=== PATIENT | female | born 1940 | race Caucasian/White ===

== ENCOUNTER 2016-05-20 05:33 | Day surgery (SDC) | payer MEDICARE, OTHER ==
[2016-05-18 13:47] LABS: HEMATOCRIT 38.1 % (36.0-48.0); HEMOGLOBIN 12.8 g/dL (12.0-16.0)
[2016-05-18 14:01] LABS: BUN (BLOOD UREA NITROGEN) 30 MG/DL (6-23); CALCIUM, SERUM 9.3 MG/DL (8.5-10.4); CHLORIDE, SERUM 103 MMOL/L (96-112); CO2 (CARBON DIOXIDE) 28 MMOL/L (24-34); CREATININE 0.82 MG/DL (0.55-1.02); GFR AFRICAN AMERICAN 81 ML/MIN (>=60); GFR NON AFRICAN AMERICAN 70 ML/MIN (>=60); GLUCOSE, SERUM 102 MG/DL (60-99); POTASSIUM, SERUM 4.2 MMOL/L (3.5-5.3); SODIUM, SERUM 140 MMOL/L (135-148)
--- NOTE | ~2016-05-20 | OP ---
Record Of Operation [facility] [address] [place]. [address] NAME: MADDISON CANAS : 38 STATUS : [facility]#: [id number] AGE: 75 ADM/REG DATE : 05/20/16 MR#: [id number] REPORT SERV DATE: 05/21/16 DICTATED BY: AMOL MENEZES DATE: 05/21/16 REPORT STATUS : Draft TRANSCRIBED BY: MODJoana DATE: 05/21/16 DATE OF PROCEDURE: 05/20/2016 ANESTHESIA: General. COMPLICATIONS: None. ESTIMATED BLOOD LOSS: 75 mL. PREOPERATIVE DIAGNOSES: 1. Cystocele, rectocele. 2. Stress urinary incontinence. 3. Vaginal vault prolapse. POSTOPERATIVE DIAGNOSES: 1. Cystocele, rectocele. 2. Stress urinary incontinence. 3. Vaginal vault prolapse. OPERATION: 1. Attempted laparoscopic colpopexy with subsequent anterior and posterior repair. 2. Enterocele repair. 3. Sacrospinous ligament vaginal vault suspension. 4. Advantage Fit suburethral sling. 5. Cystoscopy. PROCEDURE IN DETAIL: The patient was taken to the operating room and placed on the operating table in [facility]. After adequate anesthesia, the patient was prepped and draped in the usual sterile fashion. A 5 mm subumbilical incision was performed. A Veress needle was inserted and abdomen insufflated with CO2 gas. A 5 mm trocar was inserted. After confirming the intraabdominal position, there were just multiple adhesions noted with no clear pathway to see any where in the abdomen or pelvis. At this point, a decision was made to complete the procedure vaginally. The anterior vaginal wall was sharply and bluntly dissected off the underlying anterior fibromuscular tissue. The anterior fibromuscular tissue was plicated with 0 PDS and 0 Vicryl suture. The bladder wall was paper-thin in one area. A small less than half centimeter mary grace in the bladder was noted. This was repaired with a 4-0 chromic and an imbricating 3-0 Vicryl suture. Again, the anterior fibromuscular tissue was plicated with 0 PDS and 0 Vicryl suture. Using an Advantage Fit sling, needles were inserted upward through the retropubic space and the mesh placed just distal to the urethrovesical junction without any tension. The anterior compartment was thoroughly irrigated. Hemostasis noted to be good. Excess anterior vaginal wall excised and reapproximated with running 2-0 Vicryl suture. Next, the posterior vaginal wall was sharply and bluntly dissected off the underlying posterior fibromuscular tissue. The enterocele was plicated with 0 PDS suture. Two separate #1 Prolene sutures were placed to the sacrospinous ligament 2 to 3 cm medial to the ischial spine. One end of each of these were affixed to the vaginal apex in a whit stitch fashion and held. Posterior fibromuscular tissue was Record Of Operation [facility] [address] [place]. [address] NAME: MADDISON CANAS : 38 STATUS : [facility] PAT#: [id number] AGE: 75 ADM/REG DATE : 05/20/16 MR#: [id number] REPORT SERV DATE: 05/21/16 DICTATED BY: AMOL MENEZES DATE: 05/21/16 REPORT STATUS : Draft TRANSCRIBED BY: CHLOE DATE: 05/21/16 plicated with 0 PDS and 0 Vicryl suture. At this point, the Prolene sutures in the sacrospinous ligament were tied, elevating the vaginal apex high in the pelvis. The posterior compartment was sterilely irrigated. Hemostasis noted to be good. Excess posterior vaginal wall was excised and reapproximated with running 2-0 Vicryl suture. Cystoscopy was performed. There was bilateral ureteral efflux of Pyridium dye. No sutures or mesh noted in the bladder at this point. Jamison and vaginal pack were placed. The patient tolerated the procedure well and was taken to the recovery room in stable condition. JAKE ol Menezes M.D. / [id number] CC: Marialuisa Mckee M.D.
[~2016-05-20 05:33] MED LIST: ALOE VERA PO; ASAB PO; ATEN25 PO; BENADRYL 50 MG50 MG PO; CALCIUM + D OTC PO; CALCIUM + D3 PO; CALTRA600D PO; CARDURA1 MG PO; CAT1 PO; CAT2 PO; CATAPRES2 TOP; CATAPRES3 TOP; FISH-EPA1000 MG PO; FRIENDLY FLORA PO; GLUCCHONDR PO; HALF81 PO; KLOR-CON 1010 MEQ PO; LIPITOR10 PO; LIPITOR20 PO; LOTE20 PO; LOTREL1 CA4 PO; NEXIUM40 PO; NORV10 PO; OMEGA-3 PO; P10 PO; PCET PO; PEP20 PO; PLAVIX PO; PROMEGA PO; SPIRO25 PO; STOOL SOFTEN100 MG PO; STRESS600T PO; TEKTUR150 PO; TEKTURNA300 MG PO; TUMSROLL PO; VITAMIN B PO; VITC500 PO; WELLSR150 PO; [UNRECOGNIZED DRUG - OTHER] PO
[2016-05-20 13:52] LABS: BASOPHILS 0.2 %; BASOPHILS ABSOLUTE 0.03 10/3/uL (0.0-0.16); EOSINOPHILS 0.2 %; EOSINOPHILS ABSOLUTE 0.03 10/3/uL (0.0-0.53); HEMATOCRIT 38.9 % (36.0-48.0); HEMOGLOBIN 12.9 g/dL (12.0-16.0); IMMATURE GRANULOCYTES 0.3 %; IMMATURE GRANULOCYTES ABSOLUTE 0.04 10/3/uL (0.0-0.11); LYMPHOCYTES 8.5 %; LYMPHOCYTES ABSOLUTE 1.26 10/3/uL (0.67-4.30); MANUAL DIFF NO %; MEAN CORPUS HGB CONC 33.2 g/dL (32.0-36.0); MEAN CORPUSCULAR HEMOGLOB 29.8 pg (26.0-34.0); MEAN CORPUSCULAR VOLUME 89.8 fL (80-100); MEAN PLATELET VOLUME 11.5 fL (9.2-13.0); NEUTROPHILS 86.8 %; NEUTROPHILS ABSOLUTE 12.91 10/3/uL (2.02-8.40); PLATELET COUNT 178 10/3/uL (150-400); RBC DISTRIBUTION WIDTH 13.2 % (12.0-16.0); RED CELL COUNT 4.33 10/6/uL (4.0-5.6); WHITE BLOOD CELLS 14.9 10/3/uL (4.5-10.5)
== END 2016-05-20 14:39 | disposition home or self-care (01) ==
LOC: SDC 05:33
PROVIDERS: Obstetrics & Gynecology Gynecology
PROC: 0TSD0ZZ Reposition Urethra, Open Approach (ICD-10-PCS; principal; 2016-05-20 06:45)
PROC: 0UQG7ZZ Repair Vagina, Via Natural or Artificial Opening (ICD-10-PCS; 2016-05-20 06:45)
PROC: 0USGXZZ Reposition Vagina, External Approach (ICD-10-PCS; 2016-05-20 06:45)
DX: E78.00 Pure hypercholesterolemia, unspecified (principal); N81.12 Cystocele, lateral; N81.10 Cystocele, unspecified; N39.3 Stress incontinence (female) (male); I73.9 Peripheral vascular disease, unspecified; F17.210 Nicotine dependence, cigarettes, uncomplicated; I25.10 Atherosclerotic heart disease of native coronary artery without angina pectoris; I10 Essential (primary) hypertension; K21.9 Gastro-esophageal reflux disease without esophagitis; E11.9 Type 2 diabetes mellitus without complications; Z88.5 Allergy status to narcotic agent; Z88.1 Allergy status to other antibiotic agents; Z88.8 Allergy status to other drugs, medicaments and biological substances; Z79.82 Long term (current) use of aspirin; Z98.41 Cataract extraction status, right eye; Z98.42 Cataract extraction status, left eye; Z90.710 Acquired absence of both cervix and uterus; Z96.1 Presence of intraocular lens; Z90.49 Acquired absence of other specified parts of digestive tract; Z91.041 Radiographic dye allergy status; Z95.5 Presence of coronary angioplasty implant and graft; M19.90 Unspecified osteoarthritis, unspecified site; Z79.899 Other long term (current) drug therapy; Z98.890 Other specified postprocedural states
CPT/HCPCS: 36415; 80048; 82962; 85014; 85018; 85025; 86850; 86900; 86901; 93005; A9270-GY; C1771; J0694; J2405; J2710; J3010